=== PATIENT | male | born 1960 | race Asian ===

== ENCOUNTER 2020-04-28 07:59 | Emergency (ER) | payer OTHER ==
[~2020-04-28] VITALS: Ht 188 cm; Wt 106.6 kg
[2020-04-28 08:01] VITALS: TEMP 99.8
[2020-04-28 11:18] VITALS: BP 170/98
== END 2020-04-28 11:18 | disposition home or self-care (01) ==
LOC: ED 07:59
PROC: 0HQGXZZ Repair Left Hand Skin, External Approach (ICD-10-PCS; principal; 2020-04-28)
PROC: 2W3KX1Z Immobilization of Left Finger using Splint (ICD-10-PCS; 2020-04-28)
PROC: 0HDQXZZ Extraction of Finger Nail, External Approach (ICD-10-PCS; 2020-04-28)
DX: S62.663A Nondisplaced fracture of distal phalanx of left middle finger, initial encounter for closed fracture (principal); S61.313A Laceration without foreign body of left middle finger with damage to nail, initial encounter; W20.8XXA Other cause of strike by thrown, projected or falling object, initial encounter; Y92.89 Other specified places as the place of occurrence of the external cause
CPT/HCPCS: 90471; 90715; 99283; J7040

== ENCOUNTER 2020-05-05 09:48 | Emergency (ER) | payer OTHER ==
[~2020-05-05] VITALS: Ht 188 cm; Wt 100.7 kg
[2020-05-05 09:53] VITALS: BP 116/77; TEMP 98.4
== END 2020-05-05 11:25 | disposition home or self-care (01) ==
LOC: ED 09:48
DX: Z51.89 Encounter for other specified aftercare (principal)
CPT/HCPCS: 99282